=== PATIENT | female | born 1995 | race Two or more races ===

== ENCOUNTER 2025-04-15 16:03 | Outpatient (OUT) | payer BC, SELFPAY | END 2025-04-15 16:04 | disposition home or self-care (01) | PROVIDERS: PCP Family Medicine; Visit Provider Family Medicine | DX: N91.2 Amenorrhea, unspecified (principal) | CPT/HCPCS: 36415; 84702 ==

== ENCOUNTER 2025-05-19 07:01 | Emergency (ER) | payer BC, SELFPAY ==
--- OUTSIDE RECORDS SUMMARY | 2023-07-19 05:00 | XMS_ITS | Continuity of Care Document ---
Author Organization [facility] Address [address] [place] [address] Phone Care Team Providers Care Knife Setter Grinder Machine Name Role Phone Richard Barnett DDS Unavailable Unavail able Allergies, Adverse Reactions, Alerts Substance Reaction Status Criticality No Known Allergies Active No Inform ation Medications Medication Instructions Dosage Effective Dates (start - stop) Status Comments Tylenol 325 mg capsule - Active Gumsol 5 %-0.1 % mucosal solution - Active Procedures Procedure Date Extract; Erupted Th/exposted Rt 023 Extract; Erupted Th/exposted Rt 023 Oral Hygiene Instruction Bitewig-single Film Intraoral-periapical 1st Film Oral Hygiene Instruction Limited Oral Eval Advance Directives Directive Yes / No Effective Date File Name No Information Encounters Encounter Description Practice Location Reason(s) For Visit Diagnoses Date Provider Providers Copied on Encounter [facility], [address] [place] [address], [id number], tel:[phone] Dental Clinic EXT (chief complaint) Encounter for screening for dental disorders Anibal Ramos. [address] [place] [address], [id number], [place]. tel:[phone] 9702 [facility], [address] [place] [address], [id number], [place] tel:[phone] Dental Clinic ER (chief complaint) Encounter for screening for dental disorders Ibrahima Braga. [address] [place] [address], [id number], [place]. tel:[phone] Family History Family Member Type Diagnosis Age At Onset No Information Payers Payer name Insurance type Covered democrat ID Authoriza tion(s) No Information Social History Type Description Quantity Date Captured Comments Alcohol Use Details Unknown Caffeine Use Details Unknown Tobacco Use Status No Information Smoking Status No Information Sex Female Sexual Orientation Straight or heterosexual Gender Identity Female Vital Signs Date / Time: Height Weight BMI Pulse Rate Blood Pressure Temperature Respiratory Rate Body Surface Area Head Circumference Head Circ. Percentile Wt./Jacky. Percentile BMI percentile Pulse Ox Inhaled Ox 9:01 AM 66 /min 118/77 mm[Hg] 98.10 F Chief Complaint And Reason For Visit From encounter dated '07/19/2023 09:00'. EXT (chief complaint). Description: EXT Reason For Referral Reason For Referral No Information Plan Of Treatment Date Type Action Status Goal Tdap Vaccine. Due on 2022 due Goal Hepatitis C screening. Due o n due Goal PRAPARE ASSESSMENT. Due on O due Goal RLP. Due on due Goal Depression screening. Due on due Goal Tdap. Due on due Goal Influenza vaccine. Due on Oc due Goal Unhealthy drug use screening . Due on due Goal PAP. Due on due Goal Depression screening. Due on due Goal Hepatitis C screening. Due o n due Goal RLP. Due on due Goal Tdap. Due on due Goal Influenza vaccine. Due on Oc due Goal Unhealthy drug use screening . Due on due Goal PAP. Due on due Goal PRAPARE ASSESSMENT. Due on O due Goal Tdap Vaccine. Due on 2022 due Goal Hep A. Due on du e History Of Present Illness Encounter Date Complaint History Of Prese nt Illness EXT EXT ER Functional Status Date Functional Assessmen t No Information Instructions Date Instruction Additional Infor mation No Information Assessments Type Assessment Date No Information Patient Care Teams Name Effective Dates (start - stop) Status Members No Information
--- OUTSIDE RECORDS SUMMARY | 2025-01-09 07:30 | XMS_ITS ---
Author Organization [facility] in [place] Address [address] [place] [address] Care Team Providers Care District Court Bailiff Name Role Phone HollyWong Primary Care Provider Allergies No Known Allergies REASON FOR VISIT Numbness/tingling in the right foot- ongoing for a few weeks now, No known injury Medications Medication SIG (Take, Route, Fr equency, Duration) Notes Start Date End Date Status predniSONE 20 MG 2 tablets Orally Onc e a day for 5 days 01/09/2025 Active Diclofenac Sodium 75 MG 1 tablet as need ed Orally Twice a day for 30 days 01/09/2025 Active Social History Tobacco Use: Social History Observation Description Date Details (start date - stop date) Former Smoker 12/01/2014 - 04/02/2024 Tobacco Control (Standard) Question Answer Notes Tobacco use: Former smoker When did you start smoking? 12/01/2014 When did you stop smoking? 04/02/2024 How long has it been since you last smoked? 1-5 years Problems Problem Type SNOMED Code ICD Code Onset Dates Problem Status W/U Status Risk Notes Problem Paresthesia (R20.2) Active confirmed Vital Signs Weight 175.8 lbs 01/09/2025 Height 64 in 01/09/2025 Blood pressure systolic 110 mm Hg 01/10/20 25 Blood pressure diastolic 78 mm Hg 025 BMI 30.17 kg/m2 01/09/2025 Encounters Encounter Location Date Provider Diagnosis [facility] [address] [facility] [place] [place] [address] 01/09/2025 Wong Barrera Paresthesia R20. 2 Assessments Encounter Date Diagnosis (ICD Code) Assessment Notes Treatment Notes Treatment Clinical Notes Section Notes 01/09/2025 Paresthesia (ICD-10 - R20.2) Plan Of Treatment Medication Medication Name Sig Start Date Stop Date Notes predniSONE 20 MG 2 tablets Orally Onc e a day for 5 days 01/09/2025 Diclofenac Sodium 75 MG 1 tablet as need ed Orally Twice a day for 30 days 01/09/2025 Progress Notes * Mona WARNER ADOB: 8 (29 yo F)Acc No.[id number]:01/09/2025 Progress Note Patient: Mona CHOW Provider: Juan Barrera ([facility])MD :1995 A ge:29 Y S ex:Female Date:01/09/2025 Address:[address] [place] [address] [place] [address] Check In:11:22 AM ESTCheck O ut:11:59 AM EST Subjective: * Chief Complaints: * N umbness/tingling in the right foot- ongoing for a few weeks nowNo known injury * HPI: D epression Screening: PHQ-2 (2015 Edition) L ittle interest or pleasure in doing things??Not at all F eeling down, depressed, or hopeless? N ot at all T otal Score 0 no ack injuty - was just sitting and when stood up had rk nubmness chropractter helpe abit but still tingling R foot- tingling in toes. * Active Problem List R20.2 Paresthesia Modified On:01/09/2025W/U Status:confirmed * Medical History: * Surgical History: T ONSILLECTOMY,UNDER 12YRS * Hospitalization/Major Diagno stic Procedure: D enies Past Hospitalization * Family History: F ather: alive, Degeneration in the spine. M other: alive, Degeneration in the spine. S ister(s): alive. 2 sister(s) - healthy. . * Social History: T obacco Use: T obacco Control (Standard) T obacco use: F ormer smoker W hen did you start smoking? 0 12/01/2014 W hen did you stop smoking? 0 04/02/2024 H ow long has it been since you last smoked??1-5 years * Medications: N one * Allergies: N .K.D.A.no[Allergies Verified] Objective: * Vitals: W t:175.8lbs, Ht: 64 in, BP:110/78mm Hg, BMI:30.17Index, Ht-cm: 162.56 cm, Wt-k.74 kg. * Examination: A bdomen Exam:: r foot with normal sensation and strength but tingling in all 5 toes. Assessment: * Assessment: 1. P aresthesia - R20.2 (Primary) Plan: * Treatment: * Procedure Codes: * Preventive Medicine: Screenings/Counseling: B TN ACTION PLAN Above Normal BMI Follow-up D ietary management education, guidance, and counseling * * Sign off status: Completed Visit Status: C HK (Check Out) true * Provider: Juan Barrera ([facility])MD Date: 0 01/09/2025 Generated for Printi ng/Faparisag/eTransmitting on: 0 05/19/2025 07:23 AM EDT History and Physical Notes * HPI (History of Present Illness) Category Sub-Category Detail Notes Category Not es Depression Screening PHQ-2 (2015 Edition) Little interest or pleasure in doing things?: Not at all no ack injuty - was just sitting and when stood up had rk nubmness chropractter helpe abit but still tingling R foot- tingling in toes Feeling down, depressed, or hopeless?: N ot at all Total Score: 0 Examination Category Sub-Category Detail Notes Category Not es Abdomen Exam: r foot with no rmal sensation and strength but tingling in all 5 toes
--- OUTSIDE RECORDS SUMMARY | 2025-04-15 07:12 | XMS_ITS ---
Author Organization [facility] in [place] Address [address] [place] [address] Care Team Providers Care Market Development Manager Name Role Phone Wong Barrera Primary Care Provider REASON FOR VISIT test Problems Problem Type SNOMED Code ICD Code Onset Dates Problem Status W/U Status Risk Notes Problem Amenorrhea (57394403) Amenorrhea (N91.2) Active confirmed Encounters Encounter Location Date Provider Diagnosis [facility] [address] [facility] [place] [address] 04/15/2025 Wong Barrera Amenorrhea N91.2 Assessments Encounter Date Diagnosis (ICD Code) Assessment Notes Treatment Notes Treatment Clinical Notes Section Notes 04/15/2025 Amenorrhea (ICD-10 - N91.2) Plan Of Treatment Pending Test Test Name Order Date HCG (Qualitative) 04/15/2025 Progress Notes * Mona WARNER ADOB: 8 (29 yo F)Acc No.[id number]:04/15/2025 Patient: Mona CHOW :1995 A ge:29 Y S ex:Female Address:[facility] [place] [address] Subjective: * Chief Complaints: * P regnancy test * Medical History: * Surgical History: * Hospitalization/Major Diagno stic Procedure: * Medications: Objective: * Vitals: * Physical Examination: Assessment: * Assessment: 1. A menorrhea - N91.2 (Primary) Plan: * Treatment: * Procedure Codes: * true * Date: Generated for Lorne michaels/Evelin/Binh on: 0 05/19/2025 07:23 AM EDT
[2025-05-19] VITALS (8 sets, daily range): BP systolic 128–145; BP diastolic 42–88; PULSE 68–82; TEMP 37.1; O2SAT 98–100; BMI 28.3
--- NOTE | 2025-05-19 07:16 | ECG_ITS ---
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 Measurements Intervals [place] Rate: 65 P: 40 MT: 156 QRS: 80 QRSD: 84 T: 21 QT: 372 QTc: 383 Interpretive Statements 1100 Sinus rhythm 9110 normal ECG No previous ECG available for comparison Electronically Signed On 05-19-2025 8:38:17 EDT by GARCIA SINGLETARY M.D.
--- NOTE | 2025-05-19 07:16 | ED.GENADUL1 ---
HPI HPI - General Adult General Chief complaint: Dizziness Stated complaint: DIZZINESS, VISION WENT BLACK LAST NIGHT, Time Seen by Provider: 05/19/25 07:03 Source: patient Mode of arrival: walk-in History of Present Illness HPI narrative: 29-year-old female presented to the emergency department for a near syncopal episode. She was at work last night about 9 PM and it was quite hot, she states 113 degrees. She felt like she is going to pass out and her vision went black. Somebody eased her down so she did not fall or actually pass out. There was no injury. They took her to a break room where there was air conditioning and she felt somewhat better but could not continue at her job so she went home and slept. She still feels off. She is currently , 10 weeks and she has had no vaginal bleeding. Related Data Home Medications ?Medication ?Instructions ?Recorded ?Confirmed ondansetron HCl 4 mg tablet mg 05/19/25 Allergies Allergy/AdvReac Type Severity Reaction Status Date / Time No Known Drug Allergies Allergy Verified 05/19/25 07:08 Review of Systems ROS Narrative A ten point review of systems is negative except as noted above. PFSH PFSH Social History Little interest or pleasure in doing things: not at all Feeling down, depressed, or hopeless: not at all Exam Narrative Exam Narrative: Nurses note and vital signs reviewed and patient is not hypoxic. General: The patient appears in no apparent distress. Skin: Warm, dry, no pallor noted. There is no rash noted. Head: Normocephalic, atraumatic Eye: Normal conjunctiva, no drainage Ears, Nose, Mouth, and Throat: oral mucosa is moist. Nares patent. Cardiovascular: Regular Rate and Rhythm Respiratory: Patient is in no distress, no accessory muscle use, lungs are clear to auscultation, no wheezing, rales or rhonchi Back: non-tender GI: Soft and nontender Musculoskeletal: The patient has no evidence of calf tenderness, no pitting edema, symmetrical pulses noted bilaterally Neurological: A&O, normal speech Psychiatric: Cooperative Constitutional Vital Signs, click to edit/add: Last Vital Signs Temp 98.8 F 05/19/25 07:06 Pulse 68 05/19/25 08:00 Resp 19 05/19/25 08:00 BP 128/57 05/19/25 08:00 Pulse Ox 99 05/19/25 08:00 O2 Del Method Room Air 05/19/25 07:06 Course Vital Signs Vital signs: Vital Signs Temperature 98.8 F 05/19/25 07:06 Pulse Rate 70 05/19/25 07:06 Respiratory Rate 18 05/19/25 07:06 Blood Pressure 145/88 H 05/19/25 07:06 Pulse Oximetry 99 05/19/25 07:06 Oxygen Delivery Method Room Air 05/19/25 07:06 Temperature 98.8 F 05/19/25 07:06 Pulse Rate 68 05/19/25 08:00 Respiratory Rate 19 05/19/25 08:00 Blood Pressure 128/57 05/19/25 08:00 Pulse Oximetry 99 05/19/25 08:00 Oxygen Delivery Method Room Air 05/19/25 07:06 Medical Decision Making MDM Narrative Medical decision making narrative: Blood work is essentially normal. She has had no vaginal bleeding. She was given IV fluids and is able to be discharged home. I have no concern about any issues with the fetus. Treatment diagnosis and follow-up were discussed with the patient and she was given a work note. Differential Diagnosis Differential Diagnosis: Heat exhaustion, dehydration Lab Data Lab results reviewed: Yes I reviewed the patient's lab results Labs: Lab Results 05/19/25 Range/Units 07:27 WBC 10.1 (4.0-11.0) 10^3/uL RBC 4.09 L (4.20-5.40) 10^6/uL Hgb 11.8 L (12.0-16.0) g/dL Hct 34.2 L (36.0-48.0) % MCV 83.6 (81.0-99.0) fL MCH 28.9 (26.7-34.0) pg MCHC 34.5 (29.9-35.2) g/dL RDW 14.2 (11.0-15.0) % Plt Count 312 (150-450) 10^3/uL MPV 9.4 L (9.5-13.5) fL Neut % (Auto) 72.8 (43.0-75.0) % Lymph % (Auto) 20.0 L (20.5-60.0) % [place] % (Auto) 6.0 (1.7-12.0) % Eos % (Auto) 0.3 L (0.9-7.0) % Baso % (Auto) 0.3 (0.2-2.0) % Neut # (Auto) 7.4 H (1.4-6.5) 10^3/uL Lymph # (Auto) 2.0 (1.2-3.8) 10^3/uL [place] # (Auto) 0.6 (0.3-0.8) 10^3/uL Eos # (Auto) 0.0 (0.0-0.7) 10^3/uL Baso # (Auto) 0.0 (0.0-0.1) 10^3/uL Abs Immat Gran (auto) 0.06 H (0.00-0.03) 10^3/uL Imm/Tot Granulo (auto) 0.6 H (0.0-0.5) % Sodium 138 (136-145) mmol/L Potassium 3.5 (3.5-5.1) mmol/L Chloride 104 (98-107) mmol/L Carbon Dioxide 23.4 (21.0-32.0) mmol/L Anion Gap 14.1 BUN 5.0 L (7.0-18.0) mg/dL Creatinine 0.44 L (0.55-1.02) mg/dL Est GFR ( Amer) >60 (>=60 mL/min/1.73m^2) Est GFR (Non-Af Amer) >60 (>=60 mL/min/1.73m^2) BUN/Creatinine Ratio 11.4 Glucose 176 H (74-106) mg/dL Calcium 8.6 (8.5-10.1) mg/dL ECG Data Attestation: I personally reviewed and interpreted this ECG as follows: (EKG on my interpretation shows sinus rhythm with rate of 65 and no acute change) Discharge Plan Discharge Chief Complaint: Dizziness Clinical Impression: Heat exhaustion Patient Disposition: Home, Self-Care Time of Disposition Decision: 08:24 Condition: Good Mode of Transportation: Private Vehicle Prescriptions / Home Meds: No Action ondansetron HCl 4 mg tablet Print Language: Vietnamese Instructions: Heat Exhaustion (ED) Referrals: Dexter Barrera MD [Primary Care Provider, Family Practice] - 1 week
--- OUTSIDE RECORDS SUMMARY | 2025-05-19 07:24 | XMS_ITS | Clinical Summary ---
Author Organization [facility] Address [address] [place] [address] Care Team Providers Care Cable Technician Name Role Phone Dexter Barrera MD Primary Care Provider [phone] Allergies No known active allergies Medications No known medications Active Problems Problem Noted Date Diagnosed Date Scoliosis 07/14/2010 Social History Tobacco Use Types Packs/Day Years Used Date Smoking Tobacco: Never Assessed Comments Unknown Sex and Gender Information Value Date Recorded Sex Assigned at Not on file Legal Sex Female 8:31 AM EST Gender Identity Not on file Sexual Orientation Not on file Plan of Treatment Health Maintenance Due Date Last Done Comments Anxiety Screening 2015 Depression Screening 2015 HIV Screening 2015 Hepatitis C Screening 2015 DTaP,Tdap,Td Vaccine (1 - Tdap) 2016 Hepatitis B Vaccine (1 of 3 - 19+ 3-dose series) 10/29 Cervical Cancer Screening 2018 HPV Vaccine (1 - 3-dose SCDM series) 2024 Influenza Vaccine (#1) 2025 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
--- OUTSIDE RECORDS SUMMARY | 2025-05-19 07:24 | XMS_ITS | Patient Health Record ---
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 Name Role Phone Wong Barrera Primary Care Provider [phone] Allergies No Known Allergies Results Component Value Reference Range Notes PREG QUANT HCG Reviewed date:04/15/2025 06:03:55 PM Interpretation: Performing Lab: Notes/Report: [facility] Quantitative 26134 5-50 0.2-1 WEEK 50-500 1-2 WEEKS 100-5,000 2-3 WEEKS 500-10,000 3-4 WEEKS 1,000-50,000 4-5 WEEKS 10,000-100,000 5-6 WEEKS 15,000-200,000 6-8 WEEKS 10,000-100,000 2-3 MONTHS Performing Lab: see note ML - [facility] Reason For Referral No Information Medications Medication SIG (Take, Route, Fr equency, [...] Risk Notes Problem Paresthesia (R20.2) Active confirmed Problem Amenorrhea (74011287) Amenorrhea (N91.2) Active confirmed Vital Signs Blood pressure diastolic 78 mm Hg 01/09/2025 Height 64 in 01/09/2025 Blood pressure systolic 110 mm Hg 01/09/2025 Weight 175.8 lbs 01/09/2025 BMI 30.17 kg/m2 01/09/2025 Encounters Encounter Location Date Provider Diagnosis [facility] [address] [place] [address] 01/09/2025 Wong Hoy Paresthesia R20. 2 [facility] [address] [place] [address] 04/15/2025 Wong Hoy Amenorrhea N91.2 [facility] [address] [place] [address] 04/15/2025 Wong Hoy Assessments Encounter Date Diagnosis (ICD Code) Assessment Notes Treatment Notes Treatment Clinical Notes Section Notes 01/09/2025 Paresthesia (ICD-10 - R20.2) 04/15/2025 Amenorrhea (ICD-10 - N91.2) Plan Of Treatment Pending Test Test Name Order Date HCG (Qualitative) 04/15/2025 Insurance Providers Payer Name Payer Address Payer Phone Subscriber Number Group Number Insured Name Patient Relationship to Insured Coverage Start Date Coverage End Date BRITTANY JARVIS [address] [place] [address] [id number] Klever Brewer Spouse - patient is the spouse of the insured Medical (General) History Surgical History Surgery Date(Month/Year) TONSILLECTOMY,UNDER 12YRS
[2025-05-19] MEDS: 0.9 % SODIUM CHLORIDE 1,000 ML 1000 ML IV (07:25)
[2025-05-19 07:34] LABS: Hematocrit 34.2 % (36.0-48.0); Hemoglobin 11.8 g/dL (12.0-16.0); Immature Granulocytes Abs Auto 0.06 10^3/uL (0.00-0.03); Immature Granulocytes Pct Auto 0.6 % (0.0-0.5); Lymphocytes Absolute Auto 2.0 10^3/uL (1.2-3.8); Mean Corpuscular HGB Conc 34.5 g/dL (29.9-35.2); Mean Corpuscular Hemoglobin 28.9 pg (26.7-34.0); Mean Corpuscular Volume 83.6 fL (81.0-99.0); Platelet Count 312 10^3/uL (150-450); Red Blood Count 4.09 10^6/uL (4.20-5.40); White Blood Count 10.1 10^3/uL (4.0-11.0)
[2025-05-19 07:42] LABS: Anion Gap 14.1; Blood Urea Nitrogen 5.0 mg/dL (7.0-18.0); Calcium 8.6 mg/dL (8.5-10.1); Carbon Dioxide 23.4 mmol/L (21.0-32.0); Chloride 104 mmol/L (98-107); Estimated GFR (African America >60 (>=60 mL/min/1.73m^2); Estimated GFR (Non-African Ame >60 (>=60 mL/min/1.73m^2); Glucose 176 mg/dL (74-106); Potassium 3.5 mmol/L (3.5-5.1); Sodium 138 mmol/L (136-145)
== END 2025-05-19 08:28 | disposition home or self-care (01) ==
PROVIDERS: Emergency Provider Emergency Medicine; PCP Family Medicine
DX: O26.891 Other specified pregnancy related conditions, first trimester (principal); Z3A.10 10 weeks gestation of pregnancy; R55 Syncope and collapse; X30.XXXA Exposure to excessive natural heat, initial encounter
CPT/HCPCS: 36415; 80048; 85025; 93005; 99284

== ENCOUNTER 2025-09-19 11:25 | Emergency (ER) | payer BC, SELFPAY ==
--- OUTSIDE RECORDS SUMMARY | 2025-09-12 09:05 | XMS_ITS ---
Author Organization [facility] [place] Address [address] [place] [address] Care Team Providers Care Claims Adjustor Name Role Phone Wong Barrera Primary Care Provider -Provider, Default Unavailable [phone] Social History Tobacco Use: Social History Observation Description Date Details (start date - stop date) Never Smoker NA - NA Tobacco Control (Standard) Question Answer Notes Tobacco use: Nonsmoker Encounters Encounter Location Date Provider Diagnosis Electronic [facility] Records [address] [place] [address] 09/12/2025 Default -Provider Plan Of Treatment No Information Progress Notes * Mona WARNER ADOB: 8 (29 yo F)Acc No.[id number]:09/12/2025 Patient:?Mona WARNER :1995???Age:29 Y???Sex:FemalePhone:[phone] Address:[facility] [address], [place] [address] Subjective: * Chief Complaints: * * Medical History: * Surgical History: * Hospitalization/Major Diagno stic Procedure: * Social History: ???Tobacco Use:?Tobacco Control (Standard)?Tobacco use:?Nonsmoker * Medications: Objective: * Vitals: * Physical Examination: ??? Assessment: Plan: * Treatment: * Procedure Codes: * true * Date:?Generated for Printing/Faxing/eTransmitting on:?09/19/2025 01:12 PM EST
[2025-09-19 11:27] VITALS: BP 134/80; PULSE 104; TEMP 36.6; O2SAT 99; BMI 32.6
--- OUTSIDE RECORDS SUMMARY | 2025-09-19 13:12 | XMS_ITS | Patient Health Record ---
Author Organization [facility] in [place] Address [address] [place] [address] Care Team Providers Care Customer Account Coordinator Name Role Phone Wong Barrera Primary Care Provider -Provider, Default Unavailable [phone] Allergies No Known Allergies Results Component Value Reference Range Notes PREG QUANT HCG Reviewed date:04/15/2025 06:03:55 PM Interpretation: Performing Lab: Notes/Report: [facility] , HCG Quantitative 53347 5-50 0.2-1 WEEK 50-500 1-2 WEEKS 100-5,000 2-3 WEEKS 500-10,000 3-4 WEEKS 1,000-50,000 4-5 WEEKS 10,000-100,000 5-6 WEEKS 15,000-200,000 6-8 WEEKS 10,000-100,000 2-3 MONTHS Performing Lab:see noteML - [facility] LBCBC AUTO DIFF Reviewed date:05/19/2025 01:20:13 PM Interpretation: Performing Lab: Notes/Report: [facility] ,White Blood Count10.14.0-11.0 10 3/uLRed Blood Count4.094.20-5.40 10 6/uL Bprobjnlum69.812.0-16.0 g/jLYkvyuohfef67.236.0-48.0 %Mean Corpuscular Flknqm28.6 81.0-99.0 fLMean Corpuscular Abblvkcucv25.926.7-34.0 pgMean Corpuscular HGB Conc 34.529.9-35.2 g/dLRed Cell Distribution Width14.211.0-15.0 %Platelet Dsumh676 150-450 10 3/uLMean Platelet Volume9.49.5-13.5 fLNeutrophils Percent Auto72.8 43.0-75.0 %Lymphocytes Percent Auto20.020.5-60.0 %Monocytes Percent Auto6.01.7- 12.0 %Eosinophils Percent Auto0.30.9-7.0 %Basophils Percent Auto0.30.2-2.0 % Immature Granulocytes Pct Auto0.60.0-0.5 %Neutrophils Absolute Auto7.41.4-6.5 10 3/uLLymphocytes Absolute Auto2.01.2-3.8 10 3/uLMonocytes Absolute Auto0.60.3-0.8 10 3/uLEosinophils Absolute Auto0.00.0-0.7 10 3/uLBasophils Absolute Auto0.00.0- 0.1 10 3/uLImmature Granulocytes Abs Auto0.060.00-0.03 10 3/uLPerforming Lab:see note - [facility] LBPROF CHEM 8 (BAS METB) Reviewed date:05/19/2025 01:20:13 PM Interpretation: Performing Lab: Notes/Report: [facility] ,Luyvxy590327-181 mmol/LPotassium3.53.5-5.1 mmol/SQovcaxfg29155-424 mmol/LCarbon Vfznddi76.421.0-32.0 mmol/LAnion Gap14.5Wfnxsxs53178-418 mg/dLBlood Urea Nitrogen5.07.0-18.0 mg/dLCreatinine0.440.55-1.02 mg/dLEstimated GFR ( Sandra>60>=60 mL/min/1.73m 2Estimated GFR (Non- Vernell>60>=60 mL/min/1.73m 2BUN Creatinine Ratio11.2Ofuxfxi7.68.5-10.1 mg/dLPerforming Lab:see note - [facility] LBECG 12 lead Reviewed date:05/19/2025 01:20:13 PM Interpretation: Performing Lab: Notes/Report: Source Facility: [facility]-[address] [place] [address] [facility] [place] [id number] Electrocardiograph Report Signed Patient: ESTHER WARNER MR#: [id number] : 1995 Acct:[id number] Age/Sex: 29 / F ADM Date: 05/19/25 Loc: ER Attending Dr: Ordering Physician: Sean Og M.D. 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 Measurements Intervals [place] Rate: 65 P: 40 AK: 156 QRS: 80 QRSD: 84 T: 21 QT: 372 QTc: 383 Interpretive Statements 1100 Sinus rhythm 9110 normal ECG No previous ECG available for comparison Electronically Signed On 05-19-2025 8:38:17 EDT by GARCIA SINGLETARY M.D. Dictated By: GARCIA SINGLETARY Signed By: 05/19/25 0838 DD/ 0709 TD/TT: Air Route Traffic Controller: Reason For Referral No Information Medications Medication SIG (Take, Route, Frequency, Duration) Notes Start Date End Date Status predniSONE 20 MG 2 tablets Orally Once a day; Du ration: 5 days 01/09/2025tiveDiclofenac Sodium 75 MG1 tablet as needed Orally Twice a day; Duration: 30 days5Active Social History Tobacco Use: Social History Observation Description Date Details (start date - stop date) Never Smoker NA - NA Tobacco Control (Standard) Question Answer Notes Tobacco use: Nonsmoker Problems Problem Type SNOMED Code ICD Code Onset Dates Problem Status W/U Status Risk Notes Problem Paresthesia (19157784) Paresthesia (R20.2 ) ActiveconfirmedProblemAmenorrhea (57900103)Amenorrhea (N91.2)Activeconfirmed Vital Signs Blood pressure diastolic 78 mm Hg 01/09/2025 Ulugis82 in01/09/2025lood pressure gtkugvtv639 mm Hg01/09/20250307Loulub626.8 lbs 01/09/2025BMI30.17 kg/m201/09/2025 Encounters Encounter Location Date Provider Diagnosis [facility] [address] [place] [address] 01/09/2025 Wong Hoy Paresthesia R20. 2 [facility] [address] [place] [address] 04/15/2025 Wong Hoy Amenorrhea N91.2 [facility] [address] [place] [address] 04/15/2025 Wong Hoy [facility] [place] [address] [facility] [place] [address] 09/12/2025Default -Provider Assessments Encounter Date Diagnosis (ICD Code) Assessment Notes Treatment Notes Treatment Clinical Notes Section Notes 01/09/2025 Paresthesia (ICD-10 - R20.2) 04/15/2025menorrhea (ICD-10 - N91.2) Plan Of Treatment Pending Test Test Name Order Date HCG (Qualitative) 04/15/2025 Insurance Providers Payer Name Payer Address Payer Phone Subscriber Number Group Number Insured Name Patient Relationship to Insured Coverage Start Date Coverage End Date BRITTANY WILKES [address] [place] [address] [id number] [employer] - patient is the spouse of the insured Medical (General) History Medical History History ICD Code former smoker Surgical History Surgery Date(Month/Year) TONSILLECTOMY,UNDER 12YRS
--- OUTSIDE RECORDS SUMMARY | 2025-09-19 13:12 | XMS_ITS | Clinical Summary ---
Author Organization [facility] Address [address] [place] [address] Care Team Providers Care Wood Mechanist Name Role Phone Dexter Barrera MD Primary Care Provider [phone] Allergies No known active allergies Medications No known medications Active Problems ProblemNoted DateDiagnosed KgxuWdvzaavfj92/12/2010 Social History Tobacco UseTypesPacks/DayYears UsedDateSmoking Tobacco: Never Assessed CommentsUnknownSex and Gender InformationValueDate RecordedSex Assigned at Not on fileLegal TmqDmcful99/02/2012 8:31 AM ESTGender IdentityNot on fileSexual OrientationNot on file Plan of Treatment Health MaintenanceDue DateLast DoneCommentsAnxiety Fmhovnrgs92/27/2016Depression Ykreiqtxa79/27/2016HIV Zwzlobfnc76/27/2016Hepatitis C Hpedmwuyk32/27/2016 DTaP,Tdap,Td Vaccine (1 - Tdap)2016Hepatitis B Vaccine (1 of 3 - 19+ 3- dose series)2016Cervical Cancer Ysbdsajos03/27/2019HPV Vaccine (1 - 3-dose SCDM series)5Covid-19 Vaccine (1 - 2024- season)2025Influenza Vaccine (#1)2025 Insurance * Guarantor: Hector GRIFFIN TypeRelation to PatientDate of BirthPhone Billing AddressSelf PtvOtbhsf[birth year][id number] [place], [place] [id number] Care Teams Team MemberRelationshipSpecialtyStart DateEnd Date Dexter Barrera MD PCP - GeneralFamily Viemmdyf55/6/10
--- NOTE | 2025-09-19 14:51 | ED_ITS ---
HPI HPI - General Adult General Chief complaint: Skin/Abscess/Foreign Body Stated complaint: 30 WEEKS PITA Thomas ANKLE Time Seen by Provider: 09/19/25 12:14 Source: patient and family Mode of arrival: walk-in History of Present Illness HPI narrative: Patient is 28 weeks she has bilateral leg swelling for a while but today she noticed some swelling in her right ankle mostly localized just below the medial malleolus It is mildly tender no fall or trauma and she mentioned that she was sent to us by her OB doctor to make sure she does not have any blood clot No difficulty breathing no other concerns Related Data Home Medications ?Medication ?Instructions ?Recorded ?Confirmed aspirin 81 mg tablet 81 mg PO DAILY 09/19/2509/02 vit no.95-ferrous 1 tab PO DAILY 09/19/25 fumarate 28 mg-folic acid 800 mcg tablet () Allergies Allergy/AdvReac Type Severity Reaction Status Date / Time No Known Drug Allergies Allergy Verified 09/19/25 11:31 Review of Systems ROS Status of ROS 10 or more systems reviewed and unremark able except as noted in history and below PFSH PFSH Social History Little interest or pleasure in doing things: not at all Feeling down, depressed, or hopeless: not at all Exam Narrative Exam Narrative: Nurses notes and vital signs reviewed and patient is not hypoxic. General: Well-appearing and in no apparent distress. Skin: Warm, dry, no pallor noted. No rash. Head: Normocephalic, atraumatic. Neck: Supple, non-tender. Cardiovascular: Regular Rate and Rhythm without murmur, gallop or rub. Respiratory: No accessory muscle use or respiratory distress. Lungs are clear to auscultation, no wheezing, rales or rhonchi Lower extremity: There is no tenderness upon palpation of the right calf or right thigh but the patient have a small area of cystlike in the medial aspect of the foot just below the medial malleolus that is almost 2 cm oval in shape and it is mildly tender not red not hot nonfluctuating And the patient does have 1+ edema bilaterally Neurological: A&O x4. No cranial nerve dysfunction observed. No truncal ataxia. Moves all extremities. Sensation intact. Psychiatric: Cooperative and interactive. Normal mood and affect. Constitutional Vital Signs, click to edit/add: Last Vital Signs Temp 97.9 F 09/19/25 11:27 Pulse 104 H 09/19/25 11:27 Resp 16 09/19/25 11:27 BP 134/80 09/19/25 11:27 Pulse Ox 99 09/19/25 11:27 O2 Del Method Room Air 09/19/25 11:27 Course Vital Signs Vital signs: Vital Signs Temperature 97.9 F 09/19/25 11:27 Pulse Rate 104 H 09/19/25 11:27 Respiratory Rate 16 09/19/25 11:27 Blood Pressure 134/80 09/19/25 11:27 Pulse Oximetry 99 09/19/25 11:27 Oxygen Delivery Method Room Air 09/19/25 11:27 Temperature 97.9 F 09/19/25 11:27 Pulse Rate 104 H 09/19/25 11:27 Respiratory Rate 16 09/19/25 11:27 Blood Pressure 134/80 09/19/25 11:27 Pulse Oximetry 99 09/19/25 11:27 Oxygen Delivery Method Room Air 09/19/25 11:27 Medical Decision Making [facility] Narrative Medical decision making narrative: The patient ultrasound of the right lower extremity shows no DVT I applied Ricci wrap in addition to elevation and rest and Tylenol for pain She is to monitor her symptom case of any increase in swelling she is to come back to the ER in case of any new symptom also to come back to the ER Discharge Plan Discharge Chief Complaint: Skin/Abscess/Foreign Body Clinical Impression: Acute foot pain, Ankle swelling Patient Disposition: Home, Self-Care Time of Disposition Decision: 14:55 Condition: Good Prescriptions / Home Meds: No Action PNV no.95-ferrous fumarate-FA [] 28 mg iron- 800 mcg tablet 1 tab PO DAILY aspirin 81 mg tablet 81 mg PO DAILY Print Language: Luxembourgish Instructions: Leg Edema (ED) Additional Instructions: Please rest and elevate and take Tylenol The patient to follow-up with the primary care within 2 to 3 days and to come back to the ER in case of any worsening of the current symptoms or any new symptoms or concerns Referrals: Dexter Barrera MD [Primary Care Provider, Family Practice] - 1 week Discharge Date/Time: 09/19/25 15:09
== END 2025-09-19 15:09 | disposition home or self-care (01) ==
PROVIDERS: Emergency Provider Emergency Medicine; PCP Family Medicine
DX: O99.891 Other specified diseases and conditions complicating pregnancy (principal); R22.41 Localized swelling, mass and lump, right lower limb; M79.671 Pain in right foot; Z3A.28 28 weeks gestation of pregnancy
CPT/HCPCS: 93971; 99284